=== PATIENT | female | born 1995 | race Caucasian/White ===

== ENCOUNTER 2020-11-24 18:09 | Emergency (ER) | payer BC, SELFPAY ==
[2020-11-24] VITALS (7 sets, daily range): BP systolic 111–185; BP diastolic 70–109; PULSE 80–92; RESP 16–22; TEMP 36.8–37; O2SAT 91–98; BMI 56.5
--- NOTE | 2020-11-24 18:12 | XR_ITS ---
PROCEDURE INFORMATION: Exam: XR Chest Exam date and time: 11/24/2020 6:12 PM Age: 25 years old Clinical indication: Patient HX: Shortness of breath. Non smoker. Denied ; Additional info: SOB TECHNIQUE: Imaging protocol: XR of the chest. Views: 1 view. COMPARISON: No relevant prior studies available. FINDINGS: Airway: The airways are patent. Lungs: Low lung volumes causes crowding of the bronchovascular structures. Bilateral perihilar haziness and streaky-like opacities. Mild segmental bronchial wall thickening. Bilateral hazy opacities in the perihilar regions. Pleural spaces: There are no pleural effusions present. There is no evidence of pneumothorax. Heart/Mediastinum: Cardiomediastinal silhouette is magnified due to technique. Bones/joints: No acute skeletal abnormality or aggressive osseous lesion. IMPRESSION: Although lung findings may be related to crowding of bronchovascular structures from low lung volumes, I am concerned for a acute viral illness in the appropriate clinical setting.
--- NOTE | 2020-11-24 18:12 | HMH.EDGENADL ---
ED Disposition Condition on Discharge: Fair - Critical Care Critical Care Time: No <Stephen Coleman - Last Filed: 11/24/20 20:05> <Jesus Wren - Last Filed: 11/24/20 22:14> Clinical Impression: COVID-19, SOB (shortness of breath), Elevated liver enzymes Disposition: Home, Self-Care Instructions: DI for COVID-19 (Suspected or Confirmed ) Additional Instructions: fluids and call pcp in am for follow up Referrals: Roselia Welch MD [Primary Care Provider] - Attestation: On 11/24/20, the high probability of a clinically significant, sudden or life threatening deterioration of the following system(s) required my full and direct attention, intervention and personal management. The time I documented below is in addition to time spent performing reported procedures but includes the following listed in this critical care notation. Medical Decision Making - Medical Records Medical records reviewed: Yes: I reviewed the patient's medical records. - Justin Inquiry Pt receiving controlled substance: No - Lab Data Result diagrams: 11/24/20 18:30 11/24/20 18:30 - ECG Data Tracing #1 ECG initial impression date: 11/24/20 ECG initial impression time: 18:19 <Stephen Coleman - Last Filed: 11/24/20 20:05> - Lab Data Lab results reviewed: Yes: I reviewed the patient's lab results. Result diagrams: 11/24/20 18:30 11/24/20 18:30 - Radiology Data #1 Image(s): Chest Image Reviewed: Yes I reviewed the patient's radiology image Preliminary Findings: Abnormal (nonspecific) - CT Data CT Scan: Chest Time Received: 22:[address] Reviewed: Yes: I have viewed the radiologist's interpretation Preliminary Findings: Abnormal (covid-19 changes with no pul emboli ) <Jesus Wren - Last Filed: 11/24/20 22:14> Vital Signs: 11/24/20 18:09 11/24/20 19:00 11/24/20 19:25 Temperature 98.6 F Temperature Source Oral Pulse Rate 90 90 Pulse Rate [Right] 92 H Respiratory Rate 18 22 Blood Pressure 185/109 H 111/85 Blood Pressure [Right Arm] 170/98 H Blood Pressure Mean 134 93 Blood Pressure Mean [Right Arm] 122 02 Sat by Pulse Oximetry 93 L 93 L 95 Oxygen Delivery Method Room Air 11/24/20 19:30 11/24/20 20:01 11/24/20 21:42 Temperature Temperature Source Pulse Rate 89 90 Pulse Rate [Right] Respiratory Rate 19 Blood Pressure 121/79 129/78 125/81 Blood Pressure [Right Arm] Blood Pressure Mean 90 86 93 Blood Pressure Mean [Right Arm] 02 Sat by Pulse Oximetry 93 L 91 L 91 L Oxygen Delivery Method Room Air Room Air - Lab Data Lab Results 11/24/20 18:30: WBC 5.6, RBC 5.79 H, Hgb 10.8 L, Hct 35.5 L, MCV 61.3 L, MCH 18.7 L, MCHC 30.5 L, RDW 14.5, Plt Count 268, MPV 7.6, Neut % (Auto) 51.2, Lymph % (Auto) 42.0, Payne % (Auto) 4.9, Eos % (Auto) 1.1, Baso % (Auto) 0.7, Neut # (Auto) 2.9, Lymph # (Auto) 2.4, Payne # (Auto) 0.3, Eos # (Auto) 0.1, Baso # (Auto) 0.0 11/24/20 18:30: Sodium 138, Potassium 3.6, Chloride 102, Carbon Dioxide 25, Anion Gap 14.6, BUN 6 L, Creatinine 0.50 L, Estimated Creat Clear 158, Estimated GFR 148, Est GFR ( Amer) 179, Glucose 94, Calcium 8.4, Total Bilirubin 2.0 H, AST 232 H, ALT 123 H, Alkaline Phosphatase 144 H, Total Protein 8.3 H, Albumin 4.6, Globulin 3.7 H, Albumin/Globulin Ratio 1.2 11/24/20 18:30: Serum HCG, Qual Negative 11/24/20 20:09: Urine Color Yellow, Urine Appearance Clear, Urine pH 6.0, Ur Specific [place] 1.025, Urine Protein Negative, Urine Glucose (UA) Negative, Urine Ketones Negative, Urine Blood Negative, Urine Nitrate Negative, Urine Bilirubin Negative, Urine Urobilinogen 0.2, Ur Leukocyte Esterase Negative, Urine WBC 3-5, Ur Squamous Epith Cells 3-5, Urine Bacteria 2+, Urine Mucus 1+ Orders (Tests/Meds): ED MEDICATIONS Discontinued Medications Generic Name Dose Route Start Last Admin Trade Name Freq PRN Reason Stop Dose Admin Iopamidol 75 ml 11/24/20 20:38 11/24/20 20:40 Iopamidol-370 (76%);100ml B
--- NOTE | 2020-11-24 18:18 | ECG_ITS ---
APPROVED REPORT Exam: Resting ECG HR:94 bpm ECG Measurements Heart Rate 94 AXES IA 146 P 36 QRSd 88 QRS 51 QT 358 T 29 QTc 447 Conclusion Normal sinus rhythm Normal ECG Electronically signed by : Ramón Patiño, 11/27/2020 07:32:12
[2020-11-24 18:47] LABS: Basophils % 0.7 % (0.1-2.0); Eosinophils # 0.1 K/mm3 (0.0-0.4); Eosinophils % 1.1 % (0.1-12.0); Hematocrit 35.5 % (37.0-47.0); Hemoglobin 10.8 g/dL (12.2-16.2); Lymphocytes # 2.4 K/mm3 (0.7-4.5); Mean Corpuscular HGB Conc 30.5 g/dL (31.8-35.4); Mean Corpuscular Hemoglobin 18.7 pg (27.0-31.2); Mean Corpuscular Volume 61.3 fl (81-99); Mean Platelet Volume 7.6 fl (7.4-10.4); Monocytes # 0.3 K/mm3 (0.1-1.0); Monocytes % 4.9 % (1.7-9.3); Neutrophils # 2.9 K/mm3 (1.8-7.8); Neutrophils % 51.2 % (37.0-80.0); Platelet Count 268 K/mm3 (142-424); Red Blood Count 5.79 M/mm3 (4.20-5.40); Red Cell Distribution Width 14.5 % (11.5-17.5); White Blood Count 5.6 K/mm3 (4.8-10.8)
[2020-11-24 18:49] LABS: Chloride 102 mmol/L (98-107); Potassium 3.6 mmoL/L (3.5-5.1); Sodium 138 mmol/L (136-145)
[2020-11-24 18:51] LABS: Alanine Aminotransferase 123 U/L (12-78); Alkaline Phosphatase 144 U/L (38-126); Anion Gap 14.6 mEq/L (5-15); Aspartate Amino Transferase 232 U/L (14-36); Blood Urea Nitrogen 6 mg/dl (7-17); Carbon Dioxide 25 mmol/L (22.0-30.0); Creatinine Clearance Estimated 158 mL/min (50-200); Estimated Glomerular Filt Rate 148 ml/min (>60); GFR (African American) 179 ML/MIN (>60)
[2020-11-24 18:52] LABS: Albumin Level 4.6 g/dl (3.5-5.0); Albumin/Globulin Ratio 1.2 (1.1-1.8); Calcium 8.4 mg/dl (8.4-10.2); Globulin 3.7 g/dL (1.3-3.2); Glucose 94 mg/dl (74-100); Total Protein,Serum 8.3 g/dl (6.3-8.2)
--- NOTE | 2020-11-24 19:12 | CT_ITS ---
PROCEDURE INFORMATION: Exam: CTA Chest With Contrast Exam date and time: 11/24/2020 7:12 PM Age: 25 years old Clinical indication: Shortness of breath; Patient HX: Patient is covid positive. R/O pe. ; Additional info: Covid, SOB TECHNIQUE: Imaging protocol: Computed tomographic angiography of the chest with contrast. 3D rendering (Not supervised by radiologist): MIP and/or 3D reconstructed images were created by the technologist. Radiation optimization: All CT scans at this facility use at least one of these dose optimization techniques: automated exposure control; mA and/or kV adjustment per patient size (includes targeted exams where dose is matched to clinical indication); or iterative reconstruction. Contrast material: ISOVUE 370; Contrast volume: 70 ml; Contrast route: INTRAVENOUS (IV); COMPARISON: CR XR CHEST PORTABLE 11/24/2020 6:22 PM FINDINGS: Pulmonary arteries: Bolus timing is insufficient for definitive exclusion of small peripheral pulmonary emboli. No large pulmonary emboli are noted within the main pulmonary arteries or proximal segmental branches in the repeat examination. Pulmonary arteries are otherwise normal in course and caliber. Aorta: Unremarkable. No aortic aneurysm. No aortic dissection. Lungs: Scattered and diffuse patchy, ground-glass, and nodular airspace opacities seen throughout the lungs. The airways are patent. Pleural spaces: Unremarkable. No pneumothorax. No pleural effusion. Heart: Unremarkable. No cardiomegaly. No pericardial effusion. Lymph nodes: Unremarkable. No enlarged lymph nodes. Liver: There is a diffuse decrease in hepatic parenchymal density, consistent with fatty infiltration. The visualized intra-abdominal structures demonstrate no acute findings. Bones/joints: No acute skeletal abnormality or aggressive osseous lesion. Soft tissues: Unremarkable. IMPRESSION: 1. Bolus timing is insufficient for definitive exclusion of small peripheral pulmonary emboli. No large pulmonary emboli are noted within the main pulmonary arteries or proximal segmental branches in the repeat examination, which has better bolus timing. Distal segmental branches are nevertheless not confidently appreciated in either the primary or repeat exam. 2. Moderate to severe diffuse airspace disease, favoring COVID-19 pneumonia.
--- NOTE | 2020-11-24 19:31 | PC.NURSE ---
Dr. Coleman requested a post ambulation SaO2. Pt ambulated approx 50ft, and sat stayed 90-92% during ambulation and post has been 92-95%. aware.
[2020-11-24 19:45] LABS: HCG Qualitative, Serum Negative (Negative)
--- NOTE | 2020-11-24 19:59 | PC.NURSE ---
Radiology notified of neg preg result. Pt & her mother updated on POC.
[2020-11-24 20:17] LABS: Microscopic, Urine URINE MICROSCOPIC (MICROSCOPIC)
[2020-11-24 20:24] LABS: Appearance,Urine CLEAR (Clear); Blood, Urine Negative (Negative); Color,Urine YELLOW (Yellow); Glucose,Urine (UA) Negative (Negative); Ketones,Urine Negative (Negative); Leukocyte Esterase,Urine Negative (Negative); Nitrate,Urine Negative (Negative); Protein,Urine Negative (Negative); Specific Gravity, Urine 1.025 (1.005-1.030); Urobilinogen,Urine 0.2 EU/dl (0.2)
[2020-11-24 20:29] LABS: Bilirubin,Urine Negative (Negative)
--- NOTE | 2020-11-24 20:34 | PC.NURSE ---
Pt back from CTA
[2020-11-24 20:40] LABS: Bacteria,Urine 2+ /lpf; Mucus,Urine 1+ /lpf
== END 2020-11-24 22:53 | disposition home or self-care (01) ==
PROVIDERS: Emergency Medicine; Emergency Provider Family Medicine; PCP Family Medicine
DX: U07.1 COVID-19 (principal); I10 Essential (primary) hypertension; E11.9 Type 2 diabetes mellitus without complications; E03.9 Hypothyroidism, unspecified; E66.01 Morbid (severe) obesity due to excess calories; Z68.43 Body mass index [BMI] 50.0-59.9, adult; Z79.899 Other long term (current) drug therapy
CPT/HCPCS: 71045; 71275; 80053; 81001; 84703; 85025; 87086; 93005; 96374; 99283; Q9967

== ENCOUNTER 2021-06-27 20:48 | Emergency (ER) | payer BC, SELFPAY ==
[2021-06-27 20:49] VITALS: BP 165/111; PULSE 108; RESP 16; TEMP 36.4; O2SAT 97; BMI 55.7
--- NOTE | 2021-06-27 21:08 | XR_ITS ---
PROCEDURE INFORMATION: Exam: XR Left Wrist Exam date and time: 06/27/2021 9:08 PM Age: 25 years old Clinical indication: Pain; Wrist; Left; Patient HX: Fall approx 4 years ago, PT states she has moved houses and possibly aggravated old injury TECHNIQUE: Imaging protocol: XR Left wrist. Views: 3 or more views. COMPARISON: No relevant prior studies available. FINDINGS: Bones/joints: Normal. Soft tissues: Normal. IMPRESSION: No acute findings.
--- NOTE | 2021-06-27 21:08 | XR_ITS ---
PROCEDURE INFORMATION: Exam: XR Left Elbow Exam date and time: 06/27/2021 9:08 PM Age: 25 years old Clinical indication: Pain; Elbow; Left; Patient HX: Fall approx 4 years ago, PT states she has moved houses and possibly aggravated old injury TECHNIQUE: Imaging protocol: XR Left elbow. Views: 3 or more views. COMPARISON: CR XR WRIST LT MIN 3V 06/27/2021 9:14 PM FINDINGS: Bones/joints: No fracture. No malalignment. Soft tissues: Prominent fat pads. Question effusion. IMPRESSION: No evidence of acute osseous injury
--- NOTE | 2021-06-27 21:34 | HMH.EDGENADL ---
ED Disposition Clinical Impression: Cervical radicular pain Disposition: Home, Self-Care Condition on Discharge: Good Instructions: DI for Neck Pain Additional Instructions: use meds and see pcp for follow up Prescriptions: predniSONE [Prednisone 20mg Tab] 20 mg PO BID #10 tab Transmission Status: Pending to [id number] Referrals: Roselia Welch MD [Primary Care Provider] - - Critical Care Critical Care Time: No Attestation: On 06/27/21, the high probability of a clinically significant, sudden or life threatening deterioration of the following system(s) required my full and direct attention, intervention and personal management. The time I documented below is in addition to time spent performing reported procedures but includes the following listed in this critical care notation. Medical Decision Making - Medical Records Medical records reviewed: Yes: I reviewed the patient's medical records. - Justin Inquiry Pt receiving controlled substance: No Vital Signs: 06/27/21 20:49 Temperature 97.6 F Temperature Source Oral Pulse Rate [Left] 108 H Respiratory Rate 16 Blood Pressure [Right Arm] 165/111 H Blood Pressure Mean [Right Arm] 129 02 Sat by Pulse Oximetry 97 Oxygen Delivery Method Room Air Orders (Tests/Meds): ED MEDICATIONS Discontinued Medications Generic Name Dose Route Start Last Admin Trade Name Freq PRN Reason Stop Dose Admin Acetaminophen 1,000 mg 06/27/21 21:13 06/27/21 21:17 Acetaminophen 500mg Tab PO 06/27/21 21:14 1,000 mg ONCE ONE Administration Ibuprofen 800 mg 06/27/21 21:13 06/27/21 21:17 Ibuprofen 400 Mg Tablet PO 06/27/21 21:14 800 mg ONCE ONE Administration - Radiology Data #1 Image(s): Elbow, Wrist Image Reviewed: Yes I have reviewed radiologist's interpretation Preliminary Findings: Abnormal (no fx ) Medical Decision Narrative: exam and hx most consistent with cervical dis - fat pads noted but no clinical fx and no pt tenderness - but pain with neck and upper trap pattern General Adult HPI - General Chief complaint: PAIN Stated complaint: left arm, wrist pain Time Seen by Provider: 06/27/21 21:34 Mode of Arrival: Ambulatory Source of Information: Patient, Medical Record Limitations: No Limitations Description of Symptoms (Recalled from ER Triage Doc. by RN): pt reports a fall aprox 4 years ago and injured her left arm. has been moving the past week and reports the pain back in her left arm from shoulder to fingertips 12/09 - History of Present Illness HPI narrative: has old injury to lt elbow and had overuse and over the last few days neck to elbow pain worse with movement of neck and shoulder - no known ht dis or diabetes - no reddness or rash Onset (ago): day(s) Location: neck, upper extremity Radiation: distal Severity: moderate Exacerbating factors: movement Associated symptoms: denies other symptoms Treatments prior to arrival: none - Related Data Home Medications Medication Instructions Recorded Confirmed Albuterol Sulfate [Proventil Hfa] 2 puffs IH Q4HP PRN 11/24/20 11/24/20 Previous Rx's Medication Instructions Recorded predniSONE [Prednisone 20mg 20 mg PO BID #10 tab 06/27/21 Tab] Allergies Allergy/AdvReac Type Severity Reaction Status Date / Time No Known Allergies Allergy Verified 11/24/20 18:[address] [facility] History - Hepatitis A Screen Drug use history?: No High risk sexual behaviors?: No History of sexually transmitted infection?: No Currently employed?: No Childcare worker?: No Do you have indoor plumbing?: Yes Do you have electricity?: Yes Attestation statement:: This patient has been screened for Hepatitis A risk factors. I have reviewed the patient's past medical history: Yes Medical History: Reports:: Diabetes Mellitus Type 2, Hypertension Other Medical History: Reports: Thyroid Disease, Other (Hypothyroid) - Social History Smoking Status: Never
[2021-06-27 22:33] VITALS: BP 155/99; PULSE 101; RESP 16; TEMP 36.6; O2SAT 98
== END 2021-06-27 22:36 | disposition home or self-care (01) ==
PROVIDERS: Emergency Provider Emergency Medicine; PCP Family Medicine
DX: M54.12 Radiculopathy, cervical region (principal); M25.532 Pain in left wrist; E11.9 Type 2 diabetes mellitus without complications; I10 Essential (primary) hypertension
CPT/HCPCS: 73080; 73110; 99282